=== PATIENT | male | born 1970 | race Caucasian/White ===

== ENCOUNTER 2018-04-14 09:48 | Outpatient (CLI) | payer BC, SELFPAY ==
[2018-04-14 11:38] LABS: ALT 37 U/L (12-78); AST 26 U/L (15-37); Albumin 3.8 g/dL (3.4-5.0); Alkaline Phosphatase 91 U/L (46-116); BUN 11 mg/dL (7-18); Bilirubin, Total 0.4 mg/dL (0.2-1.0); CREATININE 1.13 mg/dL (0.70-1.30); Calcium 8.5 mg/dL (8.5-10.1); Chloride 104 mmol/L (98-107); Cholesterol 197 mg/dL (50-200); Glucose 91 mg/dL (70-100); HDL Cholesterol 54 mg/dL (40-60); LDL CHOLESTEROL 89 mg/dL (<100); Potassium 4.1 mmol/L (3.5-5.1); Sodium 140 mmol/L (136-145); TSH 3.23 uIU/mL (0.358-3.74); Total Protein 7.5 g/dL (6.4-8.2); Triglyceride 277 mg/dL (30-150)
== END 2018-04-14 09:49 ==
PROVIDERS: PCP Family Medicine; Visit Provider Family Medicine
DX: E03.9 Hypothyroidism, unspecified (principal); I10 Essential (primary) hypertension
CPT/HCPCS: 36415; 80053; 80061; 83721; 84443

== ENCOUNTER 2019-07-07 00:44 | Outpatient (CLI) | payer BC, SELFPAY ==
--- NOTE | 2019-07-07 12:56 | DI.MAMMO_ITS ---
EXAM: MG MAMMO DIAGNOSTIC BI AND US BREAST LT LIMITED CLINICAL HISTORY: pain left breast N64.4 MASTODYNIA TECHNIQUE: Ultrasound performed using standard protocol. Bilateral full field digital CC and MLO mammographic images were obtained with 3D tomosynthesis and u tilizing computer aided detection (CAD). COMPARISON: No exams were available for comparison FINDINGS: Diagnostic bilateral mammogram: The right breast is composed of fatty density tissue, breast density category A. Left breast is composed of scattered fibroglandular densities in the subareolar region, breast density category B. No suspicious masses or suspicious microcalcifications are seen in either breast. The findings are consistent with asymmetric gynecomastia. Left breast ultrasound: Left breast ultrasound shows mild fibroglandular densities in the subareolar region. No cyst, or mass or skin thickening is seen. IMPRESSION: Category 2, negative mammogram with benign findings of left gynecomastia. BI-RADS Cat 2 - Benign Findings Breast Density - Category A - Almost entirely fatty, Left breast Breast Density - Category B - Scattered areas of fibroglandular density, Right breast
== END 2019-07-07 01:04 ==
PROVIDERS: PCP Family Medicine; Visit Provider Family Medicine
DX: N64.4 Mastodynia (principal); N62 Hypertrophy of breast
CPT/HCPCS: 76642; 77062; 77066; G0279

== ENCOUNTER 2019-07-07 10:13 | Outpatient (CLI) | payer BC, SELFPAY ==
[2019-07-07 13:21] LABS: ALT 32 U/L (16-63); AST 38 U/L (15-37); Albumin 3.9 g/dL (3.4-5.0); Alkaline Phosphatase 96 U/L (46-116); Anion Gap 11.6 mmol/L (3-11); BUN 14 mg/dL (7-18); Bilirubin, Total 0.8 mg/dL (0.2-1.0); CO2 28.4 mmol/L (21.0-32.0); CREATININE 1.03 mg/dL (0.70-1.30); Chloride 98 mmol/L (98-107); Glucose 107 mg/dL (70-100); Potassium 3.7 mmol/L (3.5-5.1); Sodium 138 mmol/L (136-145); TSH 6.33 uIU/mL (0.36-3.74); Total Protein 8.1 g/dL (6.4-8.2)
== END 2019-07-07 10:33 ==
PROVIDERS: PCP Family Medicine; Visit Provider Family Medicine
DX: I10 Essential (primary) hypertension (principal); E03.9 Hypothyroidism, unspecified
CPT/HCPCS: 36415; 80053; 84443

== ENCOUNTER 2019-08-25 08:16 | Day surgery (SDC) | payer BC, SELFPAY ==
[2019-08-25 08:37] VITALS: BP 157/111; PULSE 86; RESP 18; TEMP 37.1; O2SAT 98
[2019-08-25] MEDS: Lactated Ringers 1,000 ML 80 ML IV (09:00)
--- NOTE | 2019-08-25 10:00 | W.PM.DSUDISC ---
Discharge Plan Disposition Patient Disposition: HOME Condition: Good Discharge Details Reason For Visit: Colonoscopy Attending Provider: Virginia Almaraz Primary Care Provider: Yakelin Oro Home Meds and New Rx's Prescriptions: Continued amlodipine 10 mg tablet 10 mg PO DAILY Qty: 90 RF: 4 hydrochlorothiazide 25 mg tablet 25 mg PO DAILY Qty: 90 RF: 4 sildenafil [Viagra] 100 mg tablet 50 - 100 mg PO DAILY MDD 100mg PRN (Reason: erectile dysfunction) Qty: 10 RF: 6 levothyroxine 50 mcg tablet 50 mcg PO DAILY Qty: 90 RF: 1 Discontinued polyethylene glycol 3350 17 gram/dose powder 238 g PO ONCE Qty: 238 RF: 0 bisacodyl [Dulcolax (bisacodyl)] 5 mg tablet,delayed release (DR/EC) 5 mg PO ONCE Qty: 4 RF: 0 Discharge Instructions Additional Instructions: Findings: Two small polyps were removed. My office will contact you with biopsy results. Follow up: Plan for a colonoscopy in 5 years. Please call if you develop: fevers >101.5 Nausea or Vomiting Abdominal pain that is not transient DAY SURGERY UNIT POST COLONOSCOPY INSTRUCTIONS 1. Because there will be medication in your system for the next 24 hours, you may feel a little sleepy. Your coordination will be affected. Therefore: a. Do not drive or operate dangerous equipment for 24 hours. b. Do not drink alcohol beverages for 24 hours (not even beer). c. Plan to go home and rest for the day. 2. Generally there are no restrictions on your activity after a day or so has gone by, but you may feel a bit fatigued for a few days. 3 After you arrive home you may have a light meal and return to a normal diet as you can tolerate it without feeling sick to your stomach. 4. After surgery, you may feel pain or discomfort. This should be only transient, but if it persists please contact your doctor. 5. If there are any questions regarding the findings of your procedure, please feel free to contact your doctor. 6. If you are unable to contact your doctor with a problem, contact the hospital at [phone]. 7. Continue all your regular medications unless directed otherwise. I understand the above instructions and have no questions. Signature of Patient or Responsible Adult Escort Date/Time Name of Responsible Adult Escort Signature of Nurse Date/Time Activity:: Activity as Tolerated Diet:: As Tolerated Discharge Orders Discharge Orders: Discharge Order (Routine); Ordered 08/25/19 Ordered By: Virginia Almaraz
--- NOTE | 2019-08-25 10:32 | BOWEL_PTH ---
PATIENT: Eduard Pringle LOC: [facility] U#:[id number] AGE/SX: 49/M ROOM: RE08/25/[address]: Virginia Almaraz MD : [id number] BED: DIS: 08/25/2019 SPEC #: [id number] RECD: 08/25/19 12:40 STATUS: DON REQ #: [id number] EAN: 08/25/19 10:[address]: Virginia Almaraz DEPT: Surgical Specimen RECD BY: Mary Ricardo ENTERED: 08/25/19 12:41 SP TYPE: Bowel OTHR DR: Yakelin Oro MD Tissues: 1 - BIOPSY BOWEL Procedures: GROSS AND MICRO LEVEL 4 Comments: [id number]
[2019-08-25 11:11] VITALS: BP 129/88; PULSE 60; RESP 16; TEMP 37; O2SAT 97
--- NOTE | 2019-08-25 11:47 | COLE_ITS ---
DATE OF PROCEDURE: August 25, 2019 PREOPERATIVE DIAGNOSIS: Screening. POSTOPERATIVE DIAGNOSIS: Colon polyps. PROCEDURE: Colonoscopy with polypectomies. SURGEON: Virginia Almaraz M.D. ANESTHESIA: General. INDICATIONS: This is a 49-year-old man who presents for his first screening colonoscopy. He is asym ptomatic and has no family history of colon cancer. PROCEDURE: He was placed in the left Terry position. Propofol was titrated to sedation. Digital rec windy examination revealed no abnormalities. The scope was advanced to the cecum without difficulty. His prep was excellent. The distal ileum was intubated and appeared normal. In the ascending colon a < 1 cm polyp was removed with snare polypectomy with cautery and retrieved for pathology. No other abnormalities were seen throughout the ascending, transverse, descending colon or sigmoid colon. He did have a diminutive polyp in the rectum that was removed with snare polypectomy but not retrieved due to its size. Retroflex view showed no other abnormalities. He will need a follow-up colonoscopy again in five years if the polyp is adenomatous. He tolerated the procedure well and was stable to recovery. cc: Yakelin Oro M.D.
== END 2019-08-25 11:51 | disposition home or self-care (01) ==
PROVIDERS: PCP Family Medicine; Visit Provider Surgery
PROC: 0DJD8ZZ Inspection of Lower Intestinal Tract, Via Natural or Artificial Opening Endoscopic (ICD-10-PCS; CPT 45378; principal; 2019-08-25 09:45)
DX: Z12.11 Encounter for screening for malignant neoplasm of colon (principal); D12.4 Benign neoplasm of descending colon; I10 Essential (primary) hypertension
CPT/HCPCS: 45385; 88305; J2250; J3010

== ENCOUNTER 2020-11-06 08:05 | Outpatient (CLI) | payer BC, SELFPAY ==
[2020-11-06 13:08] LABS: Hemoglobin A1C 5.2 % (<5.7)
[2020-11-06 13:14] LABS: ALT 93 U/L (16-63); AST 83 U/L (15-37); Alkaline Phosphatase 109 U/L (46-116); BUN 12 mg/dL (7-18); Bilirubin, Total 0.9 mg/dL (0.2-1.0); CREATININE 0.9 mg/dL (0.70-1.30); Calcium 9.2 mg/dL (8.5-10.1); Calculated LDL 119 mg/dL (<100); Chloride 99 mmol/L (98-107); Cholesterol 232 mg/dL (<200); Glucose 89 mg/dL (74-106); HDL Cholesterol 82 mg/dL (40-60); Potassium 3.3 mmol/L (3.5-5.1); Sodium 138 mmol/L (136-145); TSH 5.82 uIU/mL (0.36-3.74); Total Protein 8.2 g/dL (6.4-8.2); Triglyceride 155 mg/dL (<150)
== END 2020-11-06 08:06 | disposition home or self-care (01) ==
LOC: LOS 08:06
PROVIDERS: PCP Family Medicine; Visit Provider Family Medicine
DX: I10 Essential (primary) hypertension (principal); E03.9 Hypothyroidism, unspecified; R73.9 Hyperglycemia, unspecified
CPT/HCPCS: 36415; 80053; 80061; 83036; 84443

== ENCOUNTER 2020-12-31 03:04 | Outpatient (CLI) | payer BC, SELFPAY ==
[2021-01-01 13:29] LABS: COVID-19 RT-PCR UVMMC Result Negative (Negative)
== END 2020-12-31 03:05 | disposition home or self-care (01) ==
LOC: LBO 03:05
PROVIDERS: PCP Family Medicine; Visit Provider Family Medicine
DX: Z20.822 Contact with and (suspected) exposure to COVID-19 (principal)
CPT/HCPCS: U0003

== ENCOUNTER 2021-07-14 10:36 | Outpatient (CLI) | payer BC, SELFPAY ==
[2021-07-14 13:26] LABS: Anion Gap 9.1 mmol/L (3-11); BUN 11 mg/dL (7-18); CO2 34.9 mmol/L (21.0-32.0); CREATININE 0.9 mg/dL (0.70-1.30); Calcium 9.2 mg/dL (8.5-10.1); Chloride 98 mmol/L (98-107); Glucose 101 mg/dL (74-106); Sodium 142 mmol/L (136-145); TSH 2.46 uIU/mL (0.36-3.74)
[2021-07-14 13:33] LABS: Potassium 2.8 mmol/L (3.5-5.1)
== END 2021-07-14 10:37 | disposition home or self-care (01) ==
LOC: LOS 10:36
PROVIDERS: PCP Family Medicine; Visit Provider Family Medicine
DX: E87.6 Hypokalemia (principal); E03.9 Hypothyroidism, unspecified
CPT/HCPCS: 36415; 80048; 84443

== ENCOUNTER 2021-07-21 11:00 | Outpatient (CLI) | payer BC, SELFPAY ==
[2021-07-21 13:55] LABS: Potassium 3.5 mmol/L (3.5-5.1)
== END 2021-07-21 11:01 | disposition home or self-care (01) ==
LOC: LOS 11:01
PROVIDERS: PCP Family Medicine; Visit Provider Family Medicine
DX: E87.6 Hypokalemia (principal)
CPT/HCPCS: 36415; 84132

== ENCOUNTER 2021-09-25 16:46 | Emergency (ER) | payer BC, SELFPAY ==
[2021-09-25 16:51] VITALS: BP 174/104; PULSE 118; RESP 18; TEMP 36.4; O2SAT 99
--- NOTE | 2021-09-25 17:11 | ED.GENADUL_ITS ---
Discharge Plan Disposition Patient Disposition: HOME Condition: Improving Discharge Details Clinical Impression: Acute anterior epistaxis Primary Care Provider: Justus Torres ED Provider: George Callahan Home Meds and New Rx's Prescriptions: No Action chlorthalidone 25 mg tablet 25 mg PO DAILY Qty: 90 RF: 4 levothyroxine 75 mcg tablet 75 mcg PO DAILY Qty: 90 RF: 2 silver sulfadiazine [Silvadene] 1 % cream 1 applic topical DAILY Qty: 400 RF: 0 potassium chloride 20 mEq tablet extended release 20 meq PO DAILY Qty: 60 RF: 1 amlodipine 10 mg tablet 10 mg PO DAILY Qty: 90 RF: 4 Discharge Instructions Additional Instructions: avoid warm fluids tonight (tea, coffee) Medical Decision Making Patient had large blood clots arrival. thesewere removed. after 15 minutes of nasalprssure the patient he still has some residual epistaxis. A cotton ball impregnated with TXA was inserted in the right nostril. this resulted in stopping the epistasix. the nasaltampon was removed . HPI 51-year-old gentleman presented to the emergency room for evaluation of right- sided epistaxis. He states that he was just getting to his car after work when he suddenly developed some bleeding from the right nostril. Not better with pressure. Large clot. No trauma. No lightheadedness no weakness. No nausea no vomiting. No abdominal discomfort. General Date/Time Provider Initiated Documentation: 09/25/21 16:48 . Related Data Home Medications Medication Instructions Recorded Confirmed chlorthalidone 25 mg tablet 25 mg PO DAILY #90 tab 05/19/21 09/25/21 levothyroxine 75 mcg tablet 75 mcg PO DAILY #90 tab 07/09/21 09/25/21 silver sulfadiazine 1 % topical 1 applic TOPICAL DAILY #400 g 07/09/21 09/25/21 cream potassium chloride 20 mEq 20 meq PO DAILY #60 tab 07/21/21 09/25/21 tablet,extended release amlodipine 10 mg tablet 10 mg PO DAILY #90 tab-cap 08/04/21 09/25/21 Previous Rx's Medication Instructions Recorded chlorthalidone 25 mg tablet 25 mg PO DAILY #90 tab 05/19/21 levothyroxine 75 mcg tablet 75 mcg PO DAILY #90 tab 07/09/21 silver sulfadiazine 1 % topical 1 applic TOPICAL DAILY #400 g 07/09/21 cream potassium chloride 20 mEq 20 meq PO DAILY #60 tab 07/21/21 tablet,extended release amlodipine 10 mg tablet 10 mg PO DAILY #90 tab-cap 08/04/21 Allergies Allergy/AdvReac Type Severity Reaction Status Date / Time No Known Allergies Allergy Verified 09/25/21 16:55 General Stated Complaint: Epistaxis MIRTA: 4 Review of Systems All systems reviewed & are unremarkable except as noted in HPI and below PFSH All Active Problems Acute anterior epistaxis (Acute) Right foot pain (Acute) Hypokalemia (Acute) Tubular adenoma (Acute) colonoscopy August 2019/ Family history of thoracic aortic aneurysm (Chronic 02/08/14) negative US 2009 Hypertension (Chronic) -2017 Hypothyroidism (Chronic) Status post vasectomy (Acute) Medical History History of hypothyroidism Hx of primary hypertension Surgical History History of colonoscopy 08/24 - adenomatous polyp Vasectomy Family History Mother No problems noted. Father Aneurysm Grandfather Aneurysm Social History Smoking/Tobacco Use Status: Never Second Hand Exposure: Yes Smoking risk assessment performed?: Yes Alcohol Intake: current Alcohol Intake frequency: a few times a week Alcohol type: hard liquor Drug use: Never Substance use type: does not use Details: alcohol: t-2, couple drinks Caregiver/Support person: No Household members: spouse and children Communication Needs: None Pets and animals: Yes Pets and animals: dog(s) Sexually active: Yes Do you think of yourself as: straight/heterosexual How often do you talk on the phone with friends or family?: three or more times per week How often do you get together with friends or relatives?: three or more times per week How often do you attend mandaen or congregation services?: 1-3 times per year Do you belong to any clubs or organized social groups?: no Panel score (0-1 are the most socially isolated patients): 1 What type of physical activity do you participate in: walking Duration: 30-45 minutes/day Frequency: 5-6 times per week Juli/Nondenominational: No preference Special juli needs: No Seatbelt use: always Helmet use: Yes 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 ENT: No trauma to the nose. Noted anterior right epistaxis. CVS: Peripheral pulses 2+ and equal in all extremities. Brisk capillary refill in all extremities. RESP: Unlabored respiratory effort. Clear to auscultation bilaterally. No wheezes rales or rhonchi Skin: Warm, Dry. No rashes or lesions. Neuro: service representative II-XII grossly intact. Sensation grossly intact, no focal neurologic deficits. Psych: (AAO) x3. Appropriate mood and affect Course Vital Signs Vital signs: Vital Signs Temperature 36.4 C L 09/25/21 16:51 Pulse 118 H 09/25/21 16:51 Respiratory Rate 18 09/25/21 16:51 Blood Pressure 174/104 H 09/25/21 16:51 Pulse Oximetry 99 09/25/21 16:51 Temperature 36.4 C L 09/25/21 16:51 Temperature Source Temporal Artery Scan 09/25/21 16:51 Pulse 118 H 09/25/21 16:51 Respiratory Rate 18 09/25/21 16:51 Respiratory Effort Non-Labored 09/25/21 16:57 Blood Pressure 174/104 H 09/25/21 16:51 Blood Pressure Position Sitting 09/25/21 16:51 Pulse Oximetry 99 09/25/21 16:51 Oxygen Delivery Method Room Air 09/25/21 16:51 Oxygen Flow Rate 0 09/25/21 16:51 PAWSS Have you Been Recently Intoxicated or Drunk Within the Last 30 days?: No Have you Ever Experienced Previous Episodes of Alcohol Withdrawal?: No Have you ever Experienced Withdrawal Seizures?: No Have you ever Experienced Delirium Tremens(DT)s?: No Have you ever undergone Alcohol Rehabilitation Treatment (i.e, inpt ot outpatient treatment programs)?: No Have you ever Experienced Blackouts?: No Have you ever Combined Alcohol with other Downers within the last 90 days?: No Have you ever Combined Alcohol with any other Substance of Abuse during the last 90 days?: No Positive Blood Alcohol level on Presentation? [PCS.BAL]: No Evidence of Increased Autonomic Activity (i.e. HR>120, tremor, sweating, agitation, nausea)?: No Result: 0
[2021-09-25] MEDS: Tranexamic Acid 1,000 MG/10 ML VIAL 1000 MG (17:27)
[2021-09-25 18:17] VITALS: BP 135/90; PULSE 89; TEMP 36.5; O2SAT 98
== END 2021-09-25 18:23 | disposition home or self-care (01) ==
PROVIDERS: Emergency Provider Emergency Medicine; PCP Family Medicine
DX: R04.0 Epistaxis (principal)
CPT/HCPCS: 30901

== ENCOUNTER → 2023-06-07 18:57 | Outpatient (CLI) | payer BC, SELFPAY ==
--- NOTE | 2023-06-07 14:30 | DI.RAD_ITS ---
Exam(s) XR KNEE RT 3V AP,LAT,STANISLAW EXAM: XR KNEE RT 3V AP,LAT,STANISLAW CLINICAL HISTORY: throbbing pain, atraumatic, rt knee pain, M25.561. TECHNIQUE: 2D digital imaging was performed. COMPARISON: No exams were available for comparison FINDINGS: 3 views No evidence of fracture or obvious joint effusion. There is advanced narrowing of the medial compart ment as seen on the weight-bearing view. Lateral compartment appears unremarkable. Patellofemoral c ompartment unremarkable. IMPRESSION: Advanced narrowing of the medial compartment. No obvious joint effusion. DATA REPOSITORY: RADIATION DOSE DELIVERED:
== END ==
PROVIDERS: PCP Nurse Practitioner Family; Visit Provider Nurse Practitioner Family
DX: M25.861 Other specified joint disorders, right knee (principal)
CPT/HCPCS: 73562

== ENCOUNTER 2023-06-07 18:58 | Outpatient (CLI) | payer BC, SELFPAY ==
[2023-06-07 16:32] LABS: D-Dimer 498 ng/mlFEU (<500)
[2023-06-07 16:56] LABS: ALT 90 U/L (16-63); AST 101 U/L (15-37); Albumin 4.1 g/dL (3.4-5.0); Alkaline Phosphatase 105 U/L (46-116); Anion Gap 10.7 mmol/L (3-11); BUN 11 mg/dL (7-18); CO2 29.3 mmol/L (21.0-32.0); CREATININE 0.9 mg/dL (0.70-1.30); Calcium 9.5 mg/dL (8.5-10.1); Calculated LDL 104 mg/dL (<100); Chloride 97 mmol/L (98-107); Cholesterol 207 mg/dL (<200); Estimated GFR 100.86 (mL/min/1.73m2); Glucose 93 mg/dL (74-106); HDL Cholesterol 87 mg/dL (40-60); Sodium 137 mmol/L (136-145); TSH (W/Ref FT4) 4.43 uIU/mL (0.36-3.74); Total Protein 8.8 g/dL (6.4-8.2); Triglyceride 84 mg/dL (<150)
[2023-06-07 18:44] LABS: Potassium 2.4 mmol/L (3.5-5.1)
[2023-06-07 19:03] LABS: FREE T4 0.96 ng/dL (0.76-1.46)
[2023-06-08 11:38] LABS: PSA, Screening 2.6 ng/mL (<=3.5)
== END 2023-06-07 18:59 | disposition home or self-care (01) ==
LOC: LBO 18:58
PROVIDERS: PCP Nurse Practitioner Family; Visit Provider Nurse Practitioner Family
DX: E03.9 Hypothyroidism, unspecified (principal); E78.5 Hyperlipidemia, unspecified; I10 Essential (primary) hypertension; R74.8 Abnormal levels of other serum enzymes; Z12.5 Encounter for screening for malignant neoplasm of prostate; M25.561 Pain in right knee; M79.661 Pain in right lower leg
CPT/HCPCS: 36415; 80053; 80061; 84153; 84439; 84443; 85379

== ENCOUNTER 2023-06-10 08:04 | Outpatient (CLI) | payer BC, SELFPAY ==
[2023-06-10 18:10] LABS: Potassium 2.7 mmol/L (3.5-5.1)
== END 2023-06-10 08:05 | disposition home or self-care (01) ==
LOC: LBO 08:05
PROVIDERS: PCP Nurse Practitioner Family; Visit Provider Nurse Practitioner Family
DX: E87.6 Hypokalemia (principal)
CPT/HCPCS: 36415; 84132

== ENCOUNTER 2023-06-23 13:25 | Outpatient (CLI) | payer BC, SELFPAY ==
--- NOTE | 2023-06-23 13:33 | DI.RAD_ITS ---
Exam(s) XR TIB/FIB RT EXAM: XR TIB/FIB RT CLINICAL HISTORY: pain in right knee M25.561. TECHNIQUE: 2D digital imaging was performed of the right tibia and fibula. Four images were obtained . AP and lateral views were obtained. COMPARISON: CR XR KNEE RT 3V AP,LAT,STANISLAW from 06/07/2023 FINDINGS: BONES: No acute fracture is present. No bony destructive lesion is seen. Visualized portion of knee a nd ankle joints are unremarkable. There is a plantar calcaneal spur. SOFT TISSUE: Normal. IMPRESSION: Unremarkable radiographs of the right tibia and fibula. DATA REPOSITORY: RADIATION DOSE DELIVERED:
== END 2023-06-23 13:45 ==
LOC: DI 13:27
PROVIDERS: PCP Nurse Practitioner Family; Visit Provider Nurse Practitioner Family
DX: M25.561 Pain in right knee (principal)
CPT/HCPCS: 73590

== ENCOUNTER → 2023-10-08 01:57 | Outpatient (CLI) | payer BC, SELFPAY ==
--- NOTE | 2023-10-08 11:10 | DI.RAD_ITS ---
Exam(s) XR KNEE LT 3V AP,LAT,STANISLAW EXAM: XR KNEE LT 3V AP,LAT,STANISLAW CLINICAL HISTORY: LT KNEE PAIN,M25.562. TECHNIQUE: 2D digital imaging was performed of the left knee. Three images were obtained. AP, late ral and PA tunnel views were obtained. COMPARISON: No priors for comparison. FINDINGS: BONES: No acute fracture is present. No bony destructive lesion is seen. JOINTS: There is moderate narrowing in the medial femoral tibial joint. Osteophytes are present. Th ere is a small joint effusion. No loose body. SOFT TISSUE: Normal. IMPRESSION: Left knee arthrosis and small joint effusion. DATA REPOSITORY: RADIATION DOSE DELIVERED:
== END ==
PROVIDERS: PCP Nurse Practitioner Family; Visit Provider Nurse Practitioner Family
DX: M17.12 Unilateral primary osteoarthritis, left knee (principal)
CPT/HCPCS: 73562

== ENCOUNTER 2023-11-12 02:03 | Outpatient (CLI) | payer BC, SELFPAY ==
[2023-11-12 17:29] LABS: Anion Gap 12.2 mmol/L (3-11); BUN 6 mg/dL (7-18); CO2 27.8 mmol/L (21.0-32.0); CREATININE 0.9 mg/dL (0.70-1.30); Calcium 9.3 mg/dL (8.5-10.1); Chloride 101 mmol/L (98-107); Estimated GFR 100.86 (mL/min/1.73m2); Glucose 95 mg/dL (74-106); Potassium 3.6 mmol/L (3.5-5.1); Sodium 141 mmol/L (136-145); Uric Acid 5.4 mg/dL (3.5-7.2)
[2023-11-15 10:55] LABS: Lyme Ab w Rflx to Lyme Confirm Negative (Negative)
[2023-11-17 00:24] LABS: Anaplasma phagocytophilum Negative (Negative); B. miyamotoi PCR Negative (Negative); Babesia divergens/MO-1 Negative (Negative); Babesia duncani Negative (Negative); Babesia microti Negative (Negative); Ehrlichia chaffeensis Negative (Negative); Ehrlichia ewingii/canis Negative (Negative); Ehrlichia muris eauclairensis Negative (Negative)
== END 2023-11-12 02:04 | disposition home or self-care (01) ==
LOC: LBO 02:03
PROVIDERS: PCP Nurse Practitioner Family; Visit Provider Nurse Practitioner Family
DX: M25.561 Pain in right knee (principal); E87.6 Hypokalemia; R74.8 Abnormal levels of other serum enzymes
CPT/HCPCS: 36415; 80048; 87798; 84550; 86618

== ENCOUNTER 2023-11-15 19:57 | Outpatient (REF) | payer BC, SELFPAY ==
[2023-11-15 21:04] LABS: ALT 69 U/L (16-63); AST 63 U/L (15-37); Albumin 3.9 g/dL (3.4-5.0); Alkaline Phosphatase 117 U/L (46-116); Bilirubin, Direct 0.2 mg/dL (0.0-0.2); Bilirubin, Total 0.4 mg/dL (0.2-1.0); TSH (W/Ref FT4) 3.75 uIU/mL (0.36-3.74); Total Protein 8.2 g/dL (6.4-8.2)
== END 2023-11-15 19:58 | disposition home or self-care (01) ==
LOC: LBN 19:57
PROVIDERS: PCP Nurse Practitioner Family; Visit Provider Nurse Practitioner Family
DX: E03.9 Hypothyroidism, unspecified (principal); R74.8 Abnormal levels of other serum enzymes
CPT/HCPCS: 80076; 84439; 84443

== ENCOUNTER 2024-10-09 15:52 | Outpatient (REF) | payer BC, SELFPAY | END 2024-10-09 15:53 | disposition home or self-care (01) | LOC: LBN 15:52 | PROVIDERS: PCP Nurse Practitioner Family; Visit Provider Nurse Practitioner Family | DX: N39.0 Urinary tract infection, site not specified (principal) | CPT/HCPCS: 87086 ==

== ENCOUNTER 2024-11-17 11:17 | Outpatient (CLI) | payer BC, SELFPAY ==
[2024-11-17 12:11] LABS: Abs Immature Grans 0.02 10^3/uL (0.0-0.06); Absolute Basophil Count 0.09 10^3/uL (0.0-0.2); Absolute Eosinophil Count 0.28 10^3/uL (0.0-0.7); Absolute Lymphocyte Count 1.61 10^3/uL (1.2-3.4); Absolute Monocyte Count 0.63 10^3/uL (0.1-0.8); Absolute Neutrophil Count 3.55 10^3/uL (1.2-6.7); Basophils % 1.5 %; Eosinophils % 4.5 %; HCT 43.5 % (40.0-50.0); HGB 15.7 g/dL (13.5-17.5); Immature Grans % 0.3 %; Lymphocytes % 26.1 %; MCH 35.8 pg (27.0-33.0); MCHC 36.1 % (32.0-36.0); MCV 99 fL (80-95); MPV 10.2 fL (8.0-11.0); Monocytes % 10.2 %; Neutrophils % 57.4 %; Platelet Count 175 10^3/uL (130-400); RBC 4.38 10^6/uL (4.36-5.78); RDW 12.4 % (11.8-14.1); RDW-SD 46.1 fL; WBC 6.18 10^3/uL (4.4-10.8)
[2024-11-17 12:45] LABS: Hemoglobin A1C 4.9 % (<5.7)
[2024-11-17 12:54] LABS: ALT 70 U/L (16-63); AST 86 U/L (15-37); Alkaline Phosphatase 118 U/L (46-116); Anion Gap 10.3 mmol/L (3-11); BUN 8 mg/dL (7-18); Bilirubin, Total 1.4 mg/dL (0.2-1.0); CO2 28.7 mmol/L (21.0-32.0); CREATININE 0.9 mg/dL (0.70-1.30); Calcium 9.8 mg/dL (8.5-10.1); Chloride 100 mmol/L (98-107); Estimated GFR 100.24 (mL/min/1.73m2); Glucose 123 mg/dL (74-106); Potassium 3.6 mmol/L (3.5-5.1); Sodium 139 mmol/L (136-145); TSH (W/Ref FT4) 3.72 uIU/mL (0.36-3.74); Total Protein 8.2 g/dL (6.4-8.2)
[2024-11-17 22:51] LABS: PSA, Screening 1.2 ng/mL (<=3.5)
[2024-11-20 15:23] LABS: Lab Add On Test DONE
[2024-11-21 10:31] LABS: Lyme Ab w Rflx to Lyme Confirm Negative (Negative)
[2024-11-22 23:18] LABS: Anaplasma phagocytophilum Negative (Negative); B. miyamotoi PCR Negative (Negative); Babesia divergens/MO-1 Negative (Negative); Babesia duncani Negative (Negative); Babesia microti Negative (Negative); Ehrlichia chaffeensis Negative (Negative); Ehrlichia ewingii/canis Negative (Negative); Ehrlichia muris eauclairensis Negative (Negative)
== END 2024-11-17 11:18 | disposition home or self-care (01) ==
PROVIDERS: PCP Nurse Practitioner Family; Visit Provider Nurse Practitioner Family
DX: R73.9 Hyperglycemia, unspecified (principal); R74.8 Abnormal levels of other serum enzymes; R25.1 Tremor, unspecified; Z12.5 Encounter for screening for malignant neoplasm of prostate
CPT/HCPCS: 36415; 80053; 84153; 87798; 83036; 84443; 85025; 86618

== ENCOUNTER 2024-11-17 15:56 | Outpatient (REF) | payer BC, SELFPAY ==
[2024-11-17 16:26] LABS: Bilirubin Small (Negative); Blood Negative (Negative); Clarity Clear (Clear); Glucose Negative (Negative); Ketones Trace mg/dL (Negative); Leukocyte Esterase Negative (Negative); Nitrite Negative (Negative); Specific Gravity 1.025 (1.005-1.025); Urobilinogen 0.2 mg/dL (Up to 0.2)
[2024-11-17 17:07] LABS: Bacteria Rare HPF (Negative); C & S Indicated? No; Casts 0-2 Hyaline LPF (Negative); Crystals Negative HPF (Negative); Epithelial Cells Rare HPF (Negative); Mucus Moderate (Negative); RBC 0-2 HPF (0-2); WBC 0-2 HPF (0-5)
== END 2024-11-17 15:57 | disposition home or self-care (01) ==
LOC: LBN 15:56
PROVIDERS: PCP Nurse Practitioner Family; Visit Provider Nurse Practitioner Family
DX: R30.0 Dysuria (principal); R73.9 Hyperglycemia, unspecified; R25.1 Tremor, unspecified; R68.89 Other general symptoms and signs; Z12.11 Encounter for screening for malignant neoplasm of colon
CPT/HCPCS: 81003; 81015

== ENCOUNTER 2024-12-15 10:03 | Outpatient (CLI) | payer BC, SELFPAY ==
[2024-12-15 12:15] LABS: BUN 8 mg/dL (7-18); CREATININE 0.8 mg/dL (0.70-1.30); Calcium 9.1 mg/dL (8.5-10.1); Chloride 105 mmol/L (98-107); Estimated GFR 103.87 (mL/min/1.73m2); Glucose 103 mg/dL (74-106); Potassium 3.3 mmol/L (3.5-5.1); Sodium 142 mmol/L (136-145)
[2024-12-18 11:46] LABS: Lyme Ab w Rflx to Lyme Confirm Negative (Negative)
[2024-12-18 15:03] LABS: Anaplasma phagocytophilum Negative (Negative); B. miyamotoi PCR Negative (Negative); Babesia divergens/MO-1 Negative (Negative); Babesia duncani Negative (Negative); Babesia microti Negative (Negative); Ehrlichia chaffeensis Negative (Negative); Ehrlichia ewingii/canis Negative (Negative); Ehrlichia muris eauclairensis Negative (Negative)
== END 2024-12-15 10:04 | disposition home or self-care (01) ==
PROVIDERS: PCP Nurse Practitioner Family; Referring Provider Nurse Practitioner Family; Visit Provider Nurse Practitioner Family
DX: I10 Essential (primary) hypertension (principal); M25.562 Pain in left knee; Z01.30 Encounter for examination of blood pressure without abnormal findings
CPT/HCPCS: 36415; 80048; 87798; 82043; 82570; 86618

== ENCOUNTER 2025-01-30 16:25 | Outpatient (REF) | payer BC, SELFPAY ==
[2025-01-30 23:05] LABS: COMMENT (LAB VIEW ONLY) < 13.00 mg/dL
[2025-01-30 23:43] LABS: Uric Acid 5.3 mg/dL (3.5-7.2)
== END 2025-01-30 16:26 | disposition home or self-care (01) ==
LOC: LBN 16:25
PROVIDERS: PCP Nurse Practitioner Family; Visit Provider Nurse Practitioner Family
DX: M25.572 Pain in left ankle and joints of left foot (principal); I10 Essential (primary) hypertension
CPT/HCPCS: 82043; 82570; 84550

== ENCOUNTER 2025-01-31 00:11 | Outpatient (CLI) | payer BC, SELFPAY ==
--- NOTE | 2025-01-31 07:45 | DI.RAD_ITS ---
Exam(s) XR TIB/FIB LT EXAM: XR TIB/FIB LT CLINICAL HISTORY: worsening pain x 1 month,LT LEG PAIN,M79.605. TECHNIQUE: 2D digital imaging was performed. COMPARISON: CR XR TIB/FIB RT from 06/23/2023 FINDINGS: Two views-AP and lateral No evidence of fracture of the tibia and fibula. There is joint space narrowing in the medial compar tment of the knee and marginal osteophytes and degenerative subarticular cysts in the medial tibial p lateau. Two parallel wire like foreign bodies are incidentally noted off the medial aspect the mendoza la No significant osseous lesions in the tibia and fibula. Moderate size inferior calcaneal spur is not ed. Bone density normal. IMPRESSION: Findings as above. DATA REPOSITORY: RADIATION DOSE DELIVERED:
--- NOTE | 2025-01-31 07:45 | DI.RAD_ITS ---
Exam(s) XR ANKLE LT COMPLETE EXAM: XR ANKLE LT COMPLETE CLINICAL HISTORY: 1 month, worsening LT ANKLE PAIN,M25.572. TECHNIQUE: 2D digital imaging was performed. COMPARISON: No exams were available for comparison FINDINGS: 3 views No evidence of acute fracture or widening the ankle mortise. Talar dome unremarkable. No obvious de generative changes in the tibiotalar joint nor in the subtalar joint. There is a moderate size infer ior calcaneal spur. There is no calcification in the adjacent plantar fascia. There are mild degene rative changes noted in dorsal aspect of the talonavicular joint. IMPRESSION: Minimal radiograph findings as above. No fractures DATA REPOSITORY: RADIATION DOSE DELIVERED:
--- NOTE | 2025-01-31 07:45 | DI.RAD_ITS ---
Exam(s) XR KNEE LT 3V AP,LAT,STANISLAW EXAM: XR KNEE LT 3V AP,LAT,STANISLAW CLINICAL HISTORY: worsening over 1 month,LT LEG PAIN,M79.605. TECHNIQUE: 2D digital imaging was performed. COMPARISON: MR MR KNEE RIGHT WO CONTRAST from 06/30/2023 CR XR KNEE LT 3V AP,LAT,STANISLAW from 10/08/2023 FINDINGS: 3 views No evidence of acute fracture although there does appear to be a moderate size joint effusion. There is almost [id number] narrowing of the medial compartment and marginal osteophytes off the medial c ompartment again noted as well as degenerative subarticular cyst in the sub spinous region of the tib ial plateau. There is relative preservation of height of the lateral compartment. Again noted are 2 small adjacent wire like foreign bodies in the anterior soft tissues located medial to the patella IMPRESSION: Significant degenerative narrowing of the medial compartment again noted. Joint effusion. Two adjacent wire like foreign bodies are again noted in the soft tissues medial to the patella. The se are unchanged in size and position from 10/08/2023 DATA REPOSITORY: RADIATION DOSE DELIVERED:
== END 2025-01-31 00:31 ==
LOC: DI 00:11
PROVIDERS: PCP Nurse Practitioner Family; Visit Provider Nurse Practitioner Family
DX: M25.572 Pain in left ankle and joints of left foot; R93.6 Abnormal findings on diagnostic imaging of limbs; M79.605 Pain in left leg
CPT/HCPCS: 73562; 73590; 73610

== ENCOUNTER 2025-02-16 07:30 | Day surgery (SDC) | payer BC, SELFPAY ==
--- NOTE | 2025-02-15 21:11 | W.PM.DSUDISC ---
Date of service: 02/16/25 Discharge Plan Disposition Patient Disposition: Home Condition: Good Discharge Details Reason For Visit: screening colonoscopy Attending Provider: Ralph Garcia Primary Care Provider: Endy Quintanilla Home Meds and New Rx's Prescriptions: Continued lisinopril 10 mg tablet 10 mg PO DAILY Qty: 90 1RF amlodipine 10 mg tablet 10 mg PO DAILY Qty: 90 4RF Discontinued bisacodyl [Dulcolax (bisacodyl)] 5 mg tablet,delayed release (DR/EC) 5 mg PO ONCE Qty: 4 0RF Rx Instructions: Take per colonoscopy instructions provided by ordering providers office polyethylene glycol 3350 17 gram/dose powder 17 g PO ONCE Qty: 238 0RF Rx Instructions: Take per colonoscopy instructions provided by ordering providers office Discharge Instructions Additional Instructions: Eduard was very nice meeting you today, and I hope you make a quick recovery from the procedure. Things went very smoothly. Your prep was outstanding, and I could see everything fine. I did not see any signs of tumors or polyps today. Based on the polyps that you had removed previously, I do recommend a 5-year interval for your next colonoscopy. If you need anything, or have any questions at all, please do not hesitate to ask 1. If tolerated, consume a soft, low fiber diet for 1-2 days. 2[address] Do not drive, drink alcohol, operate machinery, make critical decisions, or do activities that require coordination or balance for 24 hours. 3. Because air was put into your colon during the procedure, expelling air from your rectum (passing gas or farting) is normal. 4. You may not have a bowel movement for 1-3 days because of the colonoscopy prep. This is normal. 5. Go directly to the emergency room if you notice any of the following: Develop chills (warm to touch), or if you have a thermometer and your temperature is above 101 Difficulty breathing or difficultly swallowing Persistent vomiting Severe abdominal pain, other than gas cramps Severe chest pain Black, tarry stools Any bleeding ? exceeding one tablespoon 6. Call your physician if the site where your intravenous was started becomes red, swollen, painful, and warm to touch. 7. Your physician has reviewed your pre-procedure medications. Please continue to take those medications as previously ordered. You will be given specific information/education regarding any changes to your medications before leaving. Stand Alone Forms: Anesthesia Discharge InstAmie Cartwright (DSU) Activity:: Activity as Tolerated Diet:: As Tolerated Discharge Orders Discharge Orders: Discharge Order (Routine); Ordered 02/15/25 Ordered By: Ralph Garcia DS: Diagnosis Discharge Diagnosis (1) Encounter for screening colonoscopy: Status: Acute Asessment and Plan: Negative screening colonoscopy today; based on history, recommend 5-year interval before the next colonoscopy.
--- NOTE | 2025-02-15 21:13 | W.COLOREPORT ---
Date of service: 02/16/25 Time of Service: :20 Colonoscopy Report Date of procedure: 02/16/25 Pre-op diagnosis general: screening colonoscopy Post-op diagnosis procedure note: other (Negative screening colonoscopy) Procedure: colonoscopy Surgeon: Ralph Garcia Anesthesia Type: General:No Airway Estimated blood loss (mL): 0 Pathology: none sent Complications: None Disposition: same day Indications: Eduard is a 54 year old man with a history of adenomatous polyps. He needs his next screening colonoscopy Prep: Miralax/Dulcolax Procedure Start Time: :01 Procedure End Time: :13 Retraction Time: 10 Findings: Negative screening colonoscopy Procedure Description: After the induction of anesthesia, and with the patient in left lateral decubitus position, I began by performing an external anorectal exam.? Perineum and skin were normal, as was the anal verge.? There was no evidence of external hemorrhoids.? Next, I performed a digital rectal exam.? I did not appreciate any abnormal findings.? Next, I advanced a colonoscope into the rectal vault.? I performed retroflexion.? This appeared normal.? Using insufflation, I then advanced the colonoscope beyond the rectal folds and into the sigmoid colon before advancing towards the cecum.? The quality of the prep was excellent.? The scope was noted to be in the cecum by identification of the ileocecal valve and appendiceal orifice.? I then began withdrawing the colonoscope using repeated irrigation as necessary for full evaluation of the colonic mucosa. ?Once the scope was withdrawn to the level of the rectum, great care was taken to examine portions of the rectal folds.? I saw no signs of tumors, polyps, or any other pathology. Finally, the scope was withdrawn and the patient was brought to the same-day surgery recovery unit as the anesthetic wore off. ?The findings and instructions were shared with the patient prior to discharge. [place] Bowel Prep [place] Bowel Prep Right Colon: 3 Left Colon: 3 Transverse Colon: 3 Total Score: 9
[2025-02-16 07:59] VITALS: BP 150/107; PULSE 107; RESP 16; TEMP 36.3; O2SAT 97
[2025-02-16] MEDS: Lactated Ringers 1,000 ML 80 ML IV (08:23)
--- NOTE | 2025-02-16 08:24 | ANES.PREOP_ITS ---
General Info Date of Service Date Performed: 02/16/25 Height: 6 ft 2 in Weight: 107.7 kg Body Mass Index (BMI): 30.4 Surgical Procedure: Operation Date: 02/16/25 09:05 Proposed Procedure Side Surgeon maria fernanda Garcia MD Meds Allergies and Home Medications Allergies Allergy/AdvReac Type Severity Reaction Status Date / Time No Known Allergies Allergy Verified 02/16/25 07:56 Home Medication ?Medication ?Instructions ?Recorded lisinopril 10 mg tablet 10 mg PO DAILY #90 tabs 11/04 12/29 amlodipine 10 mg tablet 10 mg PO DAILY #90 tabs 12/05 09/30 Current Visit Medications: Current Medications Generic Name Dose Route Start Last Admin Trade Name Freq PRN Reason Stop Dose Admin Ringer's Solution 1,000 mls @ 80 mls/hr 02/16/25 06:00 02/16/25 08:23 IV 02/16/25 23:59 80 mls/hr INFUSION JODI Administration IV Miscellaneous Supplies 1 each 02/16/25 06:00 Iv Access IV 02/16/25 23:59 DIRECTED JODI Ondansetron HCl 4 mg 02/15/25 21:14 Ondansetron 4 Mg/2 Ml Vial IVP 03/17/25 21:13 Q4H PRN PRN Nausea / Vomiting Sodium Chloride 0 ml 02/16/25 06:00 Normal Saline Flush 10 Ml Syr IV 02/16/25 23:59 PRN PRN Sodium Chloride 0 ml 02/16/25 06:00 Normal Saline 10 Ml Vial IJ 02/16/25 23:59 DIRECTED PRN Sterile Water 0 ml 02/16/25 06:00 Water,Injection,Sterile 10 Ml Vial IJ 02/16/25 23:59 DIRECTED PRN PFSH Active Problems Active Problems: Problem Status Onset Code Encounter for screening colonoscopy Acute Z12.11 Left leg pain Acute M79.605 Left ankle pain Acute M25.572 Macrocytosis Acute D75.89 Hyperglycemia Acute R73.9 Shaking Acute R25.1 Left knee pain Acute M25.562 Osteoarthritis of right knee Chronic M17.11 Tear of medial meniscus of right knee Acute S83.241A Elevated liver enzymes Acute R74.8 Hyperlipidemia Acute E78.5 Hypokalemia Acute E87.6 Tubular adenoma Acute D36.9 Hypothyroidism Chronic E03.9 Hypertension Chronic I10 Family history of thoracic aortic aneurysm Chronic 02/08/14 Z82.49 Medical History Medical History Right calf pain Right knee pain Hypothyroid History of hypothyroidism Hx of primary hypertension Surgical History Surgical History History of colonoscopy 08/24 - adenomatous polyp Vasectomy Tobacco Smoking/Tobacco Use Status: Never Passive smoking exposure: No Second hand exposure: Yes Alcohol Alcohol Intake: current Alcohol intake frequency: a few times a week Alcohol type: beer Substance Use Substance use: Never Substance use type: does not use Details: alcohol: t-2, couple drinks Vital Signs and Lab Results Vital Signs Most Recent Vital Signs in EMR: Most Recent Vital Signs Temp Pulse Resp BP Pulse Ox 36.3 C L 107 H 16 150/107 H 97 02/16/25 07:59 02/16/25 07:59 02/16/25 07:59 02/16/25 07:59 02/16/25 07:59 Anesthesia Assessment and Plan Anesthesia History Personal History: No History of Anesthesia Complications Family History: No Family History of Anesthesia Complications Exercise Tolerance Exercise Tolerance: Metabolic Equivalents>4 Cardiac & Pulmonary Exam Cardiac Exam: Normal S1/S2 Heart Sounds Pulmonary Exam: Clear Bilateral Breath Sounds Implantable Cardiac Device Does patient have a Pacemaker or an ICD?: No Airway Exam Known Difficult Airway: No Mallampati Class: 4 Mouth Opening: Normal (> 3cm) Thyromental Distance: Greater than 3 cm Neck Range of Motion: Full ROM Neck Circumference: Normal Teeth Condition: Normal Dentition ASA Classification ASA Score: ASA 2 Emergency Case?: No NPO Status NPO Status: NPO Clears >2 hours, Solids >8 hours Anesthesia Plan Resuscitation Status: Full Code Anesthesia Technique: General Anesthesia Airway Planned: Natural Airway Monitors Used: Standard Monitors Preoperative Comments:: 54 yo male for colo. Sig PMHx: HTN (amlodipine, lisinopril), hypothyroid (no meds), never smoker, occ etoh. Denies GERD. Previous Anes: - colo, fent/midaz, prop, natural airway, no issues.
[2025-02-16 08:26] VITALS: BMI 30.4
[2025-02-16 09:20] VITALS: BP 153/108; PULSE 85; RESP 16; TEMP 36.8; O2SAT 97
--- NOTE | 2025-02-16 09:34 | W.ANESPOSTOP ---
Postoperative Evaluation Date, Time and Location Date Performed: 02/16/25 Time Performed: 09:20 Patient Location: Day Surgery Unit Vital Signs Most Recent Imported Vital Signs: Most Recent Vital Signs Temp Pulse Resp BP Pulse Ox 36.8 C 85 16 153/108 H 97 02/16/25 09:20 02/16/25 09:20 02/16/25 09:20 02/16/25 09:20 02/16/25 09:20 Pain Score Most Recent Pain Score: Most Recent Pain Score Pain Level 0 02/16/25 09:20 Assessment Mental Status: Awake (Alert & Oriented to Patient Baseline) Airway and Respiratory Function: Patent airway with normal (patient baseline) respiratory exam Cardiovascular Function: Hemodynamically Stable Hydration Status: Adequately Hydrated Nausea & Vomiting: No Nausea or Vomiting Pain: Pt. Denies Any Pain Peripheral Nerve Block: Patient did not receive a nerve block
[2025-02-16 09:50] VITALS: BP 160/107; PULSE 92; RESP 16; TEMP 36.8; O2SAT 99
== END 2025-02-16 09:55 | disposition home or self-care (01) ==
LOC: SUR 07:30
PROVIDERS: PCP Nurse Practitioner Family; Visit Provider Surgery
PROC: 0DJD8ZZ Inspection of Lower Intestinal Tract, Via Natural or Artificial Opening Endoscopic (ICD-10-PCS; CPT 45378; principal; 2025-02-16 09:00)
DX: Z12.11 Encounter for screening for malignant neoplasm of colon (principal); Z86.0101 Personal history of adenomatous and serrated colon polyps; I10 Essential (primary) hypertension
CPT/HCPCS: 45378; J2003; J2704

== ENCOUNTER 2025-07-12 14:49 | Outpatient (CLI) | payer BC, SELFPAY ==
--- NOTE | 2025-07-12 14:00 | DI.RAD_ITS ---
Exam(s) XR KNEE LT 4V AP,LAT,STANISLAW,PAT EXAM: XR KNEE LT 4V AP,LAT,STANISLAW,PAT CLINICAL HISTORY: LEFT KNEE PAIN. TECHNIQUE: 2D digital imaging was performed. COMPARISON: CR XR KNEE LT 3V AP,LAT,STANISLAW from 01/31/2025 FINDINGS: Four views No evidence of fracture. Small amount of increased joint fluid.. To small adjacent wire- like foreign bodies are seen anteriorly, just medial to the midpole level of the patella, unchanged. There is significant narrowing of the medial compartment of the knee again noted small marginal osteophyte off the outer aspect of the medial tibial plateau is again noted as are degenerative subarticular cysts in the mid tibial plateau level. The lateral compartment of the knee continues to exhibit normal height and no osteophytes. There are mild degenerative changes in the patellofemoral compartment. On the sunrise view there are few calcific densities associated with the posterior aspect of the patella, medially. The prior study did not include a sunrise view IMPRESSION: Significant narrowing degenerative change in the medial compartment again noted. Small amount of increased joint fluid Soft tissue calcifications are noted in the most medial aspect of the patellofemoral articulation as seen on the sunrise view and overlying this area in the subcutaneous tissues are 2 adjacent small wire like foreign bodies, unchanged. DATA REPOSITORY: RADIATION DOSE DELIVERED:
== END 2025-07-12 14:50 | disposition home or self-care (01) ==
LOC: DIORS 14:49
PROVIDERS: PCP Nurse Practitioner Family; Visit Provider Student in an Organized Health Care Education/Training Program
DX: M25.562 Pain in left knee (principal)
CPT/HCPCS: 73564

== ENCOUNTER 2025-07-31 11:14 | Outpatient (CLI) | payer BC, SELFPAY ==
--- NOTE | 2025-07-31 11:02 | DI.RAD_ITS ---
Exam(s) XR SHOULDER LT COMPLETE 2+V EXAM: XR SHOULDER LT COMPLETE 2+V CLINICAL HISTORY: LEFT SHOULDER PAIN. TECHNIQUE: 2D digital imaging was performed of the left shoulder. Two images were obtained. Grashey and axillary views were obtained. COMPARISON: No exams were available for comparison FINDINGS: BONES: No acute fracture is present. No bony destructive lesion is seen. JOINTS: No dislocation present. The acromioclavicular and glenohumeral joints are well maintained. SOFT TISSUE: Normal. IMPRESSION: There is no acute abnormality. DATA REPOSITORY: RADIATION DOSE DELIVERED:
== END 2025-07-31 11:15 | disposition home or self-care (01) ==
LOC: DIORS 11:14
PROVIDERS: PCP Nurse Practitioner Family; Visit Provider Student in an Organized Health Care Education/Training Program
DX: M25.512 Pain in left shoulder (principal)
CPT/HCPCS: 73030